=== PATIENT | male | born 1965 | race Caucasian/White ===

== ENCOUNTER 2017-06-12 17:48 | Emergency (ER) | payer SELFPAY ==
[~2017-06-12 17:48] MED LIST: CYCL10TA7 PO; TRAM50TA2 PO; TYL3 PO
[2017-06-12 18:18] LABS: APPEARANCE,URINE Clear (CLEAR); BILIRUBIN,URINE Negative (NEGATIVE); COLOR,URINE Yellow (YELLOW); GLUCOSE, URINE (UA) Negative (NEGATIVE); KETONES,URINE Negative (NEGATIVE); LEUKOCYTE ESTERASE ,URINE Negative (NEGATIVE); NITRATE,URINE Negative (NEGATIVE); OCCULT BLOOD,URINE Moderate (NEGATIVE); PROTEIN,URINE Negative (NEGATIVE); UROBILINOGEN,URINE 0.2 mg/dL (0.2-1.0)
[2017-06-12] MEDS ORDERED: ONDANSETRON HCL 4 MG/2 ML VIAL ONE (18:26)
[2017-06-12] MEDS ORDERED: SODIUM CHLORIDE 0.9% 1000ML 1,000 ML IV ONE (18:26)
[2017-06-12] MEDS ORDERED: MORPHINE SULFATE 4 MG/1ML SYG ONE ×2 (18:26→20:56)
[2017-06-12 18:31] LABS: BACTERIA,URINE Rare /HPF (None Seen); RBC,URINE None Seen /HPF (0-1); WBC,URINE 0-1 /HPF (0-1)
[2017-06-12 18:35] LABS: BASOPHILS % (AUTO) 0.5 % (0.0-5.0); EOSINOPHILS % (AUTO) 0.2 % (0.0-8.0); HEMATOCRIT 47.6 % (42-54); LYMPHOCYTES % (AUTO) 18.2 % (21.0-51.0); MEAN CORPUSCULAR HEMOGLOBIN 29.2 pg (27.0-33.0); MEAN CORPUSCULAR HGB CONC 34.6 g/dL (32.0-36.0); MEAN CORPUSCULAR VOLUME 84.5 fL (79-99); NEUTROPHILS % (AUTO) 74.1 % (40.0-77.0); PLATELET COUNT (AUTO) 305 K/uL (130-400); RED BLOOD CELL COUNT(AUTO) 5.63 MIL/uL (4.50-6.20); RED CELL DISTRIBUTION WIDTH 13.7 % (11.0-15.5); WHITE BLOOD COUNT (AUTO) 11.2 K/uL (4.8-10.8)
[2017-06-12 18:47] LABS: CREATININE 1.2 mg/dL (0.5-1.5); POTASSIUM 4.5 mmol/L (3.5-5.1)
[2017-06-12 18:50] LABS: ALBUMIN 4.3 g/dL (3.5-5.0); BILIRUBIN,DIRECT 0.1 mg/dL (0.0-0.3)
[2017-06-12 19:11] LABS: BILIRUBIN,TOTAL 0.4 mg/dL (0.2-1.0); TOTAL PROTEIN, SERUM 8.1 g/dL (6.0-8.3)
[2017-06-12] MEDS ORDERED: ACETAMINOPHEN-CODEINE 300/30MG TAB ONE (20:38)
== END 2017-06-12 21:06 | disposition home or self-care (01) ==
LOC: EDH 17:48
DX: R31.9 Hematuria, unspecified (principal); R10.9 Unspecified abdominal pain; Z88.6 Allergy status to analgesic agent
CPT/HCPCS: 36415; 74176; 76870; 80048; 80076; 81001; 85025; 87486; 87797; 96361; 96374; 96375; 96376; 99285; J2270 ×2; J2405; J7030

== ENCOUNTER 2018-11-16 14:52 | Inpatient (IN) | payer OTHER ==
[~2018-11-16] VITALS: Ht 182.9 cm; Wt 114.4 kg
[2018-11-16 15:22] LABS: APPEARANCE,URINE Clear (CLEAR); BILIRUBIN,URINE Negative (NEGATIVE); COLOR,URINE Yellow (YELLOW); GLUCOSE, URINE (UA) Negative (NEGATIVE); KETONES,URINE Negative (NEGATIVE); LEUKOCYTE ESTERASE ,URINE Negative (NEGATIVE); NITRATE,URINE Negative (NEGATIVE); OCCULT BLOOD,URINE Large (NEGATIVE); PH,URINE 5.5 (5.0-8.0); PROTEIN,URINE POS 1+ mg/dL (NEGATIVE)
[2018-11-16] MEDS ORDERED: DICYCLOMINE HCL 10 MG/ML 2ML AMP IM ONE (15:27)
[2018-11-16] MEDS ORDERED: ONDANSETRON HCL 4 MG/2 ML VIAL ONE (15:27)
[2018-11-16] MEDS ORDERED: SODIUM CHLORIDE 0.9% 1000ML 1,000 ML IV ONE ×3 (15:27→19:52)
[2018-11-16 15:36] LABS: AMPHET/METH SCREEN,URINE NEGATIVE (NEGATIVE); BARBITURATE SCREEN, URINE NEGATIVE (NEGATIVE); BENZODIAZEPINES SCREEN,URINE NEGATIVE (NEGATIVE); CANNABINOID SCREEN,URINE NEGATIVE (NEGATIVE); COCAINE SCREEN,URINE NEGATIVE (NEGATIVE); OPIATE SCREEN,URINE NEGATIVE (NEGATIVE); PHENCYCLIDINE SCREEN,URINE NEGATIVE (NEGATIVE)
[2018-11-16 15:46] LABS: BACTERIA,URINE None Seen /HPF (None Seen); MUCUS,URINE Moderate LPF (None Seen); RBC,URINE 26-50 /HPF (0-1); SQUAMOUS EPITHELIAL CELL,UR 0-2 /HPF (0-2); WBC,URINE None Seen /HPF (0-1)
[2018-11-16 15:55] LABS: BASOPHILS % (AUTO) 1.5 % (0.0-5.0); HEMATOCRIT 46.7 % (42-54); LYMPHOCYTES % (AUTO) 6.6 % (21.0-51.0); MEAN CORPUSCULAR HEMOGLOBIN 29.2 pg (27.0-33.0); MEAN CORPUSCULAR HGB CONC 34.3 g/dL (32.0-36.0); MEAN CORPUSCULAR VOLUME 85.2 fL (79-99); MONOCYTES % (AUTO) 8.4 % (3.0-13.0); NEUTROPHILS % (AUTO) 83.5 % (40.0-77.0); PLATELET COUNT (AUTO) 227 K/uL (130-400); RED BLOOD CELL COUNT(AUTO) 5.48 MIL/uL (4.50-6.20); RED CELL DISTRIBUTION WIDTH 13.4 % (11.0-15.5); WHITE BLOOD COUNT (AUTO) 13.8 K/uL (4.8-10.8)
[2018-11-16 16:09] LABS: ALBUMIN 3.8 g/dL (3.5-5.0); BILIRUBIN,DIRECT 0.2 mg/dL (0.0-0.3); BILIRUBIN,TOTAL 0.7 mg/dL (0.2-1.0); CREATININE 1.1 mg/dL (0.5-1.5); TOTAL PROTEIN, SERUM 7.6 g/dL (6.0-8.3)
[2018-11-16] MEDS ORDERED: CEFTRIAXONE SODIUM 1 GM ONE (16:55)
[2018-11-16] MEDS ORDERED: POTASSIUM BICARB/CIT AC 25 MEQ TABLET.EFF ONE (16:55)
[2018-11-16] MEDS ORDERED: SODIUM CHLORIDE 0.9% 100 ML IV ONE (16:56)
[2018-11-16] MEDS ORDERED: MORPHINE SULFATE 4 MG/1ML SYG ONE (17:01)
[2018-11-16] MEDS ORDERED: MAGNESIUM 2GM PREMIX 50ML 50 ML IV ONE (18:08)
[2018-11-16] MEDS ORDERED: ACETAMINOPHEN 325 MG TAB ONE (18:21)
[2018-11-16] MEDS ORDERED: ACETAMINOPHEN 325 MG TAB PO PRN (20:15)
[2018-11-16] MEDS ORDERED: ONDANSETRON HCL 4 MG/2 ML VIAL IVP PRN (20:15)
[2018-11-16] MEDS ORDERED: LIDOCAINE HCL-MPF 1% 2ML VIAL IVP PRN (20:30)
[2018-11-16] MEDS ORDERED: POTASSIUM CHLORIDE 10% ELIXIR 20 MEQ/15 ML UDCUP PO PRN (20:30)
[2018-11-16] MEDS ORDERED: POTASSIUM CHLORIDE 20 MEQ ERTAB PO PRN (20:30)
[2018-11-16] MEDS ORDERED: POTASSIUM CHLORIDE 20MEQ/100ML 100 ML IV PRN (20:30)
[2018-11-16] MEDS ORDERED: FAMOTIDINE/PF 20 MG/2 ML VIAL IV ONE (20:35)
[2018-11-16] MEDS: CEFTRIAXONE SODIUM 1 GM IVP SCH (20:45)
[2018-11-16] MEDS: FAMOTIDINE/PF 20 MG/2 ML VIAL IV SCH (21:00)
[2018-11-16 21:29] VITALS: BP 121/78
--- NOTE | 2018-11-16 21:30 | NUR ---
NEW ADMISSION ADMITTED A 53 YR OLD MALE FOR DIVERTICULITIS WITH COMPLAINTS OF PERSISTENT LLQ ABDOMINAL PAIN WITH NAUSEA AND VOMITING PLUS FEBRILE EPISODES WHICH PROMPTED THE PT TO SEEK ADMISSION TO THIS HOSPITAL. STARTED ON HYDRATION WITH NS AT 100 CC/HR, PRESCRIBED IV ANTIBIOTICS INITIATED. NO PAIN AND NAUSEA AT THIS TIME, SANDWICH TRAY PROVIDED PER REQUEST AND TOLERATED WELL. PLACED ON FALL PRECAUTIONS, FALL EPISODE 2 WEEKS AGO, PT HAVING PROBLEMS WITH HIS KNEE CAPS. HOME MEDS TO BE BROUGHT BY GF IN THE AM, WILL CONTINUE TO MONITOR.
[2018-11-16] MEDS: SODIUM CHLORIDE 0.9% 1000ML 1,000 ML IV SCH (21:50)
[2018-11-16] MEDS: METRONIDAZOLE 500MG/100ML BAG 100 ML IV SCH (21:51)
[2018-11-16] MEDS: ZOSYN 3.375GM+NS 50ML 50 ML IV SCH (22:34)
[2018-11-16 23:18] VITALS: BP 142/81
[2018-11-17 04:28] VITALS: BP 115/54
[2018-11-17] MEDS: METRONIDAZOLE 500MG/100ML BAG 100 ML IV SCH ×3 (05:14→20:55)
[2018-11-17 05:19] LABS: HEMATOCRIT 43.8 % (42-54); MEAN CORPUSCULAR HEMOGLOBIN 29.5 pg (27.0-33.0); MEAN CORPUSCULAR HGB CONC 33.7 g/dL (32.0-36.0); MEAN CORPUSCULAR VOLUME 87.5 fL (79-99); PLATELET COUNT (AUTO) 193 K/uL (130-400); RED CELL DISTRIBUTION WIDTH 13.9 % (11.0-15.5); WHITE BLOOD COUNT (AUTO) 10.4 K/uL (4.8-10.8)
[2018-11-17 05:43] LABS: BAND NEUTROPHILS % (MANUAL) 2 % (0-2); LYMPHOCYTES % (MANUAL) 13 % (22-44); MAN.DIFF COMMENT-IMPRESSION MANUAL DIFFERENTIAL; MONOCYTES % (MANUAL) 11 % (2-9); SEGMENTED NEUTROPHILS % 74 % (40-70)
[2018-11-17 05:44] LABS: PLATELET MORPHOLOGY COMMENT ADEQUATE
[2018-11-17] MEDS: SODIUM CHLORIDE 0.9% 1000ML 1,000 ML IV SCH ×3 (06:04→22:29)
[2018-11-17] MEDS: ZOSYN 3.375GM+NS 50ML 50 ML IV SCH ×3 (06:04→20:55)
[2018-11-17 07:56] VITALS: BP 107/75
[2018-11-17 08:21] LABS: CREATININE 1.2 mg/dL (0.5-1.5); POTASSIUM 3.6 mmol/L (3.5-5.1)
[2018-11-17] MEDS: ENOXAPARIN SODIUM 30 MG/0.3 ML SQ SCH (09:00)
[2018-11-17] MEDS: FAMOTIDINE/PF 20 MG/2 ML VIAL IV SCH ×2 (09:00→20:55)
[2018-11-17 12:00] VITALS: BP 117/69
[2018-11-17] MEDS: MORPHINE SULFATE 2 MG/ML 1ML SYG IV PRN ×2 (12:37→21:07)
--- NOTE | 2018-11-17 13:16 | NUR ---
D/C PLAN CM spoke to pt regarding d/c planning. Girlfriend Cheli at bedside. States she lives with pt and assists in care. Pt uses cane for ambulation. CM provided community resources packet. Plan to home. No needs verbalized or identified. CM to f/u. Addendum: 11/17/18 at 1318 by RUSS BASURTO CM Amended: Links added.
[2018-11-17 16:00] VITALS: BP 120/74
[2018-11-17 19:49] VITALS: BP 123/85
[2018-11-17] MEDS: PSYLLIUM SEED 1 EACH PACKET PO SCH (20:55)
[2018-11-17] MEDS: CEFTRIAXONE SODIUM 1 GM IVP SCH (20:55)
[2018-11-18 00:01] VITALS: BP 129/81
[2018-11-18 03:44] VITALS: BP 111/73
--- NOTE | 2018-11-18 03:44 | NUR ---
PIV Iv to rt antecubital occluded,Iv dcd.cath tip intact.Applied pressure until bleeding stopped.New Iv started to rt hand x 1 attempt,osmel well.
[2018-11-18] MEDS: ZOSYN 3.375GM+NS 50ML 50 ML IV SCH ×3 (03:56→20:18)
[2018-11-18] MEDS: SODIUM CHLORIDE 0.9% 1000ML 1,000 ML IV SCH ×2 (03:56→20:19)
[2018-11-18] MEDS: METRONIDAZOLE 500MG/100ML BAG 100 ML IV SCH ×3 (03:57→20:18)
[2018-11-18 07:00] VITALS: BP 117/75
[2018-11-18 07:30] LABS: BASOPHILS % (AUTO) 0.7 % (0.0-5.0); EOSINOPHILS % (AUTO) 2.2 % (0.0-8.0); HEMATOCRIT 42.1 % (42-54); LYMPHOCYTES % (AUTO) 24.8 % (21.0-51.0); MEAN CORPUSCULAR HEMOGLOBIN 29.1 pg (27.0-33.0); MEAN CORPUSCULAR HGB CONC 33.4 g/dL (32.0-36.0); MEAN CORPUSCULAR VOLUME 87.3 fL (79-99); MONOCYTES % (AUTO) 15.6 % (3.0-13.0); NEUTROPHILS % (AUTO) 56.7 % (40.0-77.0); PLATELET COUNT (AUTO) 207 K/uL (130-400); RED BLOOD CELL COUNT(AUTO) 4.82 MIL/uL (4.50-6.20); RED CELL DISTRIBUTION WIDTH 13.5 % (11.0-15.5); WHITE BLOOD COUNT (AUTO) 6.9 K/uL (4.8-10.8)
[2018-11-18 07:37] LABS: CREATININE 1.1 mg/dL (0.5-1.5); POTASSIUM 3.8 mmol/L (3.5-5.1)
[2018-11-18] MEDS: PSYLLIUM SEED 1 EACH PACKET PO SCH (08:55)
[2018-11-18] MEDS: FAMOTIDINE/PF 20 MG/2 ML VIAL IV SCH ×2 (08:55→20:18)
[2018-11-18] MEDS: ENOXAPARIN SODIUM 30 MG/0.3 ML SQ SCH (09:00)
[2018-11-18 11:00] VITALS: BP 139/79
--- NOTE | 2018-11-18 13:46 | NUR ---
DR. BRODY IN TO SEE PT. DIET >TO FULL LIQUIDS.
[2018-11-18 16:00] VITALS: BP 142/79
[2018-11-18] MEDS: MORPHINE SULFATE 2 MG/ML 1ML SYG IV PRN (17:26)
[2018-11-18 19:00] VITALS: BP 155/94
--- NOTE | 2018-11-18 20:00 | NUR ---
ACTIVITY Pt up and ambulating in the hallway with shaila.Shila well.
[2018-11-18] MEDS: CEFTRIAXONE SODIUM 1 GM IVP SCH (20:18)
[2018-11-19] VITALS: BP 144/80
[2018-11-19] MEDS: SODIUM CHLORIDE 0.9% 1000ML 1,000 ML IV SCH (01:04)
[2018-11-19 04:00] VITALS: BP 128/83
--- NOTE | 2018-11-19 04:21 | NUR ---
REFUSED Pt refusing blood draws.He said "no more blood".Explained Md order for labs.He refused to sign refusal form either.
[2018-11-19] MEDS: ZOSYN 3.375GM+NS 50ML 50 ML IV SCH ×2 (04:57→15:12)
[2018-11-19] MEDS: METRONIDAZOLE 500MG/100ML BAG 100 ML IV SCH ×2 (04:57→15:12)
[2018-11-19 07:00] VITALS: BP 161/102
--- NOTE | 2018-11-19 08:00 | NUR ---
AM SHIFT ASSESSMENT.STATES HE IS READY TO GO HOME.NO DC ORDERS IN PLACE YET.
[2018-11-19 08:15] LABS: HEMATOCRIT 44.4 % (42-54); MEAN CORPUSCULAR HEMOGLOBIN 28.8 pg (27.0-33.0); MEAN CORPUSCULAR HGB CONC 33.1 g/dL (32.0-36.0); NUCLEATED RED BLOOD CELLS 0.1 % (0.0-0.19); PLATELET COUNT (AUTO) 228 K/uL (130-400); RED CELL DISTRIBUTION WIDTH 13.4 % (11.0-15.5); WHITE BLOOD COUNT (AUTO) 6.3 K/uL (4.8-10.8)
[2018-11-19 08:25] LABS: CREATININE 1.1 mg/dL (0.5-1.5)
[2018-11-19] MEDS: PSYLLIUM SEED 1 EACH PACKET PO SCH (10:05)
[2018-11-19] MEDS: FAMOTIDINE/PF 20 MG/2 ML VIAL IV SCH (10:05)
[2018-11-19] MEDS: ENOXAPARIN SODIUM 30 MG/0.3 ML SQ SCH (10:06)
--- NOTE | 2018-11-19 11:00 | NUR ---
IN TO SEE PT.DIET ORDERED CHANGED TO LOW FIBER.
[2018-11-19 12:01] VITALS: BP 173/98
[2018-11-19] MEDS ORDERED: METR-172 PO (13:29)
[2018-11-19] MEDS ORDERED: LEVO500T89 PO (13:29)
[2018-11-19] MEDS ORDERED: CEFD300C3 PO (13:44)
--- NOTE | 2018-11-19 17:30 | NUR ---
DISCHARGED NOW USING TEACH BACK. RX GIVEN ,WILL FOLLOW UP WITH PRIMARY DRGloria IN 3 TO 5 DAYS AND HAVE BP CHECKED IT WAS HIGH ON SEVERAL OCCASIONS. NO PAIN ABD AT TIME DC. TOLERATED DIET .
== END 2018-11-19 17:00 | disposition home or self-care (01) | DRG 392 ==
LOC: EDH 14:52 → EDHIP 14:53 → OBSVTOIN 14:53 → 3BH 20:08
PROVIDERS: ADMIT Hospitalist; ATTEND Hospitalist
DX: K57.32 Diverticulitis of large intestine without perforation or abscess without bleeding (principal); E87.1 Hypo-osmolality and hyponatremia; E86.0 Dehydration; E87.6 Hypokalemia; R73.9 Hyperglycemia, unspecified; M19.90 Unspecified osteoarthritis, unspecified site; H53.8 Other visual disturbances; M51.26 Other intervertebral disc displacement, lumbar region; K59.00 Constipation, unspecified; E66.3 Overweight; Z87.442 Personal history of urinary calculi; Z83.3 Family history of diabetes mellitus; Z68.32 Body mass index [BMI] 32.0-32.9, adult; Z88.6 Allergy status to analgesic agent; Z91.018 Allergy to other foods; Z79.899 Other long term (current) drug therapy
CPT/HCPCS: 36415; 74176; 80048; 80076; 80305; 81001; 82150; 83690; 85025; 85027; G0378; J0500; J0696; J1650; J2270; J2405; J2543; J3475; J3490; J7030

== ENCOUNTER 2019-10-14 12:55 | Emergency (ER) | payer SELFPAY ==
[~2019-10-14 12:55] MED LIST changes: +CEFD300C3 PO; +LEVO500T89 PO; +METR-172 PO
== END 2019-10-14 15:07 | disposition home or self-care (01) ==
LOC: EDH 12:55
DX: S80.02XA Contusion of left knee, initial encounter (principal); S80.01XA Contusion of right knee, initial encounter; M19.90 Unspecified osteoarthritis, unspecified site; Z87.891 Personal history of nicotine dependence; Z88.6 Allergy status to analgesic agent; Z79.899 Other long term (current) drug therapy; W18.39XA Other fall on same level, initial encounter; Y93.89 Activity, other specified; Y92.89 Other specified places as the place of occurrence of the external cause; Y99.8 Other external cause status
CPT/HCPCS: 99281

== ENCOUNTER 2020-02-29 01:08 | Emergency (ER) | payer OTHER ==
[2020-02-29] MEDS ORDERED: LIDOCAINE HCL 1% 20 ML VIAL ONE (01:25)
[2020-02-29] MEDS ORDERED: TETANUS/DIPHTHERIA TOXOID [ADULT] 0.5 ML VIAL IM ONE (01:31)
== END 2020-02-29 01:58 | disposition home or self-care (01) ==
LOC: EDH 01:08
DX: S61.412A Laceration without foreign body of left hand, initial encounter (principal); W26.0XXA Contact with knife, initial encounter; M19.90 Unspecified osteoarthritis, unspecified site; Z88.6 Allergy status to analgesic agent; Y93.89 Activity, other specified; Y92.89 Other specified places as the place of occurrence of the external cause; Y99.8 Other external cause status
CPT/HCPCS: 12002; 90471; 90714

== ENCOUNTER 2020-07-28 22:13 | Emergency (ER) | payer SELFPAY ==
[~2020-07-28 22:13] MED LIST changes: +CYCL-309 PO; -CYCL10TA7 PO; -LEVO500T89 PO; +LEVO500T90 PO
[2020-07-28 22:42] LABS: BASOPHILS % (AUTO) 0.7 % (0.0-5.0); EOSINOPHILS % (AUTO) 1.3 % (0.0-8.0); HEMATOCRIT 43.3 % (42-54); MEAN CORPUSCULAR HEMOGLOBIN 29.6 pg (27.0-33.0); MEAN CORPUSCULAR HGB CONC 35.1 g/dL (32.0-36.0); MEAN CORPUSCULAR VOLUME 84.4 fL (79-99); MONOCYTES % (AUTO) 11.2 % (3.0-13.0); NEUTROPHILS % (AUTO) 55.5 % (40.0-77.0); PLATELET COUNT (AUTO) 227 K/uL (130-400); RED BLOOD CELL COUNT(AUTO) 5.13 MIL/uL (4.50-6.20); RED CELL DISTRIBUTION WIDTH 13.1 % (11.0-15.5); WHITE BLOOD COUNT (AUTO) 7.5 K/uL (4.8-10.8)
[2020-07-28 23:00] LABS: CREATININE 1.2 mg/dL (0.5-1.5); POTASSIUM 3.5 mmol/L (3.5-5.1)
[2020-07-28 23:03] LABS: INR 0.98 (0.85-1.15); PROTHROMBIN TIME 10.7 SEC (9.6-11.6)
[2020-07-28 23:04] LABS: PARTIAL THROMBOPLASTIN TIME 25.6 SEC (26.3-35.5)
[2020-07-28 23:05] LABS: ALBUMIN 3.8 g/dL (3.5-5.0); BILIRUBIN,TOTAL 0.5 mg/dL (0.2-1.0); TOTAL PROTEIN, SERUM 7.3 g/dL (6.0-8.3)
[2020-07-29] MEDS ORDERED: ACETAMINOPHEN 500 MG TABLET ONE (00:55)
[2020-07-29 01:16] LABS: APPEARANCE,URINE Clear (CLEAR); BILIRUBIN,URINE Negative (NEGATIVE); COLOR,URINE Yellow (YELLOW); GLUCOSE, URINE (UA) Negative (NEGATIVE); KETONES,URINE Negative (NEGATIVE); LEUKOCYTE ESTERASE ,URINE Negative (NEGATIVE); NITRATE,URINE Negative (NEGATIVE); OCCULT BLOOD,URINE Negative (NEGATIVE); PROTEIN,URINE Negative (NEGATIVE)
[2020-07-29] MEDS ORDERED: HYDROXYZINE 25 MG TABLET ONE (02:04)
== END 2020-07-29 03:28 | disposition home or self-care (01) ==
LOC: EDH 22:13
DX: F41.9 Anxiety disorder, unspecified (principal); R51.9 Headache, unspecified; M19.90 Unspecified osteoarthritis, unspecified site; Z88.6 Allergy status to analgesic agent
CPT/HCPCS: 36415; 71045; 80053; 81003; 82550; 84484; 85025; 85610; 85730; 93005

== ENCOUNTER 2020-08-25 01:42 | Emergency (ER) | payer OTHER ==
[~2020-08-25 01:42] MED LIST changes: -CYCL-309 PO; +CYCL10TA7 PO; +LEVO500T89 PO; -LEVO500T90 PO
[2020-08-25] MEDS ORDERED: TETANUS/DIPHTHERIA TOXOID [ADULT] 0.5 ML VIAL IM ONE (02:07)
[2020-08-25] MEDS ORDERED: LIDOCAINE 1%-EPI 1:100,000 20 ML VIAL IJ ONE (02:47)
== END 2020-08-25 03:46 | disposition home or self-care (01) ==
LOC: EDH 01:42
DX: S01.511A Laceration without foreign body of lip, initial encounter (principal); M19.90 Unspecified osteoarthritis, unspecified site; Z88.6 Allergy status to analgesic agent; W22.8XXA Striking against or struck by other objects, initial encounter; Y93.89 Activity, other specified; Y92.098 Other place in other non-institutional residence as the place of occurrence of the external cause; Y99.8 Other external cause status
CPT/HCPCS: 12011; 90471; 90714; 99283; J3490

== ENCOUNTER 2021-02-16 20:40 | Emergency (ER) | payer SELFPAY ==
[~2021-02-16] VITALS: Ht 182.9 cm; Wt 115.7 kg
[~2021-02-16 20:40] MED LIST changes: +CYCL-309 PO; -CYCL10TA7 PO; -LEVO500T89 PO; +LEVO500T90 PO
[2021-02-16 20:53] VITALS: BP 143/104
[2021-02-16] MEDS ORDERED: OCTYL 2-CYANOACRYLATE 1 EACH TP ONE ×2 (22:06→22:16)
== END 2021-02-16 22:27 | disposition home or self-care (01) ==
LOC: EDH 20:40
DX: S06.0X0A Concussion without loss of consciousness, initial encounter (principal); S01.81XA Laceration without foreign body of other part of head, initial encounter; W22.8XXA Striking against or struck by other objects, initial encounter; Z88.6 Allergy status to analgesic agent; Z79.899 Other long term (current) drug therapy; Y93.89 Activity, other specified; Y92.89 Other specified places as the place of occurrence of the external cause; Y99.8 Other external cause status
CPT/HCPCS: 12011; 70450; 72125

== ENCOUNTER 2021-03-25 05:27 | Emergency (ER) | payer SELFPAY ==
[~2021-03-25] VITALS: Ht 182.9 cm; Wt 115.7 kg
[2021-03-25 05:46] LABS: BASOPHILS % (AUTO) 0.5 % (0.0-5.0); EOSINOPHILS % (AUTO) 1.3 % (0.0-8.0); HEMATOCRIT 45.4 % (42-54); LYMPHOCYTES % (AUTO) 38.8 % (21.0-51.0); MEAN CORPUSCULAR HGB CONC 34.1 g/dL (32.0-36.0); MONOCYTES % (AUTO) 11.1 % (3.0-13.0); NEUTROPHILS % (AUTO) 47.9 % (40.0-77.0); PLATELET COUNT (AUTO) 246 K/uL (130-400); RED BLOOD CELL COUNT(AUTO) 5.34 MIL/uL (4.50-6.20); RED CELL DISTRIBUTION WIDTH 13.6 % (11.0-15.5); WHITE BLOOD COUNT (AUTO) 7.7 K/uL (4.8-10.8)
[2021-03-25 06:03] LABS: ALBUMIN 4.1 g/dL (3.5-5.0); BILIRUBIN,TOTAL 0.6 mg/dL (0.2-1.0); CREATININE 1.2 mg/dL (0.5-1.5); POTASSIUM 3.6 mmol/L (3.5-5.1); TOTAL PROTEIN, SERUM 7.2 g/dL (6.0-8.3)
[2021-03-25 06:19] LABS: ABG PCO2 43 mmHg (35-48)
[2021-03-25] MEDS ORDERED: ASPIRIN 325MG TAB PO ONE (06:30)
[2021-03-25 08:15] LABS: APPEARANCE,URINE Clear (CLEAR); BILIRUBIN,URINE Negative (NEGATIVE); COLOR,URINE Yellow (YELLOW); GLUCOSE, URINE (UA) Negative (NEGATIVE); KETONES,URINE Negative (NEGATIVE); LEUKOCYTE ESTERASE ,URINE Negative (NEGATIVE); NITRATE,URINE Negative (NEGATIVE); OCCULT BLOOD,URINE Negative (NEGATIVE); PROTEIN,URINE Negative (NEGATIVE); UROBILINOGEN,URINE 0.2 mg/dL (0.2-1.0)
[2021-03-25] MEDS ORDERED: ONDA4TAB10 PO (08:20)
[2021-03-25] MEDS ORDERED: PANT40TA PO (08:20)
[2021-03-25] MEDS ORDERED: METOCLOPRAMIDE 10 MG/2 ML VIAL IVP SCH (08:30)
[2021-03-25] MEDS ORDERED: PANTOPRAZOLE 40 MG/VIAL IVP SCH (08:30)
[2021-03-25] MEDS ORDERED: FAMOTIDINE 20MG VIAL IV SCH (08:30)
[2021-03-25] MEDS ORDERED: METOCLOPRAMIDE 10 MG/2 ML VIAL ONE (08:31)
[2021-03-25] MEDS ORDERED: FAMOTIDINE 20MG VIAL IV ONE (08:31)
[2021-03-25] MEDS ORDERED: PANTOPRAZOLE 40 MG/VIAL ONE (08:31)
[2021-03-25 08:33] VITALS: BP 108/67
== END 2021-03-25 08:54 | disposition home or self-care (01) ==
LOC: EDH 05:27
DX: E86.9 Volume depletion, unspecified (principal); R10.13 Epigastric pain; Z88.6 Allergy status to analgesic agent; M19.90 Unspecified osteoarthritis, unspecified site; Z79.82 Long term (current) use of aspirin; Z79.899 Other long term (current) drug therapy
CPT/HCPCS: 36415; 36600; 71045; 80053; 81003; 82803; 84484; 85025; 93005; 96374; 96375; 99285; C9113; J2765; J3490

== ENCOUNTER 2021-09-08 08:59 | Day surgery (SDC) | payer MEDICAID ==
[~2021-09-08] VITALS: Ht 182.9 cm; Wt 122.9 kg
[2021-09-08] VITALS (11 sets, daily range): BP systolic 111–140; BP diastolic 77–90
[~2021-09-08 08:59] MED LIST changes: +ONDA4TAB10 PO; +PANT40TA PO
[2021-09-08] MEDS ORDERED: 0.9%NACL 1000ML 1,000 ML IV ONE (10:08)
[2021-09-08] MEDS ORDERED: MECL-160 PO (10:22)
[2021-09-08] MEDS ORDERED: GABA300C PO (10:22)
[2021-09-08] MEDS ORDERED: TAMS-1 PO (10:22)
[2021-09-08] MEDS ORDERED: DICY20TA3 PO (10:22)
[2021-09-08] MEDS ORDERED: PRED20TA3 PO (10:22)
[2021-09-08] MEDS ORDERED: SUCR1TAB2 PO (10:22)
[2021-09-08] MEDS ORDERED: INDO50CA98 PO (10:22)
[2021-09-08] MEDS ORDERED: LIDOCAINE PF 100MG/5ML (2%) SYRINGE 5ML ONE ×2 (10:28)
[2021-09-08] MEDS ORDERED: PROPOFOL 10 MG/ML 20ML VIAL IV ONE (10:28)
[2021-09-08] MEDS ORDERED: FENTANYL CITRATE PF 50 MCG/1 ML 2ML VIAL ONE (10:29)
== END 2021-09-08 11:30 | disposition home or self-care (01) ==
LOC: ENDO 08:59 → DAH 08:59 → ENDO 11:30
PROVIDERS: ATTEND Student in an Organized Health Care Education/Training Program
DX: K21.9 Gastro-esophageal reflux disease without esophagitis (principal); K29.50 Unspecified chronic gastritis without bleeding; G47.30 Sleep apnea, unspecified; Z98.890 Other specified postprocedural states; Z83.3 Family history of diabetes mellitus; Z80.9 Family history of malignant neoplasm, unspecified; Z79.899 Other long term (current) drug therapy
CPT/HCPCS: 87635; 88305; 88342; 43239; C9803; J3010; J7030; J3490 ×3; A4215 ×2; A4223; A4222; A4221; A4663; A4606; J2001; J2704

== ENCOUNTER → 2021-09-23 | Outpatient (CLI) | payer MEDICAID ==
[~2021-09-23] MED LIST changes: -CEFD300C3 PO; -CYCL-309 PO; +DICY20TA3 PO; +GABA300C PO; +INDO50CA98 PO; -LEVO500T90 PO; +MECL-160 PO; -METR-172 PO; -ONDA4TAB10 PO; -PANT40TA PO; +PRED20TA3 PO; +SUCR1TAB2 PO; +TAMS-1 PO; -TRAM50TA2 PO
== END ==
LOC: RAH 09:38
PROVIDERS: ATTEND Family Medicine
DX: Z01.818 Encounter for other preprocedural examination (principal)
CPT/HCPCS: 71046

== ENCOUNTER → 2022-06-07 | Outpatient (CLI) | payer MEDICAID ==
[~2022-06-07] MED LIST changes: +AMOX1TAB16 PO; +FAMO-136 PO; +OMEP20TA20 PO
== END | disposition home or self-care (01) ==
LOC: RAH 08:19
PROVIDERS: ATTEND Family Medicine
DX: K21.9 Gastro-esophageal reflux disease without esophagitis (principal); R10.9 Unspecified abdominal pain
CPT/HCPCS: 74240

== ENCOUNTER 2022-08-04 11:15 | Emergency (ER) | payer MEDICAID ==
[~2022-08-04] VITALS: Ht 182.9 cm; Wt 108.9 kg
[2022-08-04 11:41] LABS: APPEARANCE,URINE CLEAR (CLEAR); BILIRUBIN,URINE NEGATIVE (NEGATIVE); COLOR,URINE YELLOW (YELLOW); GLUCOSE, URINE (UA) NEGATIVE (NEGATIVE); KETONES,URINE NEGATIVE (NEGATIVE); LEUKOCYTE ESTERASE ,URINE NEGATIVE Leu/uL (NEGATIVE); NITRATE,URINE NEGATIVE (NEGATIVE); OCCULT BLOOD,URINE NEGATIVE (NEGATIVE); PROTEIN,URINE NEGATIVE (NEGATIVE); UROBILINOGEN,URINE 0.2 mg/dL (0.2-1.0)
[2022-08-04] MEDS ORDERED: CEFTRIAXONE 1G VIAL IM ONE (14:00)
[2022-08-04] MEDS ORDERED: TETRACAINE HCL 0.5% 4 ML OPHTH SOLN OP SCH (14:00)
[2022-08-04 14:36] VITALS: BP 149/90
[2022-08-04] MEDS ORDERED: MOXIOS OD (15:06)
[2022-08-04] MEDS ORDERED: AZITHROMYCIN 250 MG TABLET PO ONE (15:30)
== END 2022-08-04 15:27 | disposition home or self-care (01) ==
LOC: EDH 11:15
DX: T15.81XA Foreign body in other and multiple parts of external eye, right eye, initial encounter (principal); A64 Unspecified sexually transmitted disease; H10.9 Unspecified conjunctivitis; Z90.49 Acquired absence of other specified parts of digestive tract; Z79.899 Other long term (current) drug therapy; Z98.890 Other specified postprocedural states; Z88.6 Allergy status to analgesic agent; Z88.8 Allergy status to other drugs, medicaments and biological substances
CPT/HCPCS: 99284; 81003; 96372; J0696

== ENCOUNTER 2022-09-01 11:53 | Emergency (ER) | payer MEDICAID ==
[~2022-09-01] VITALS: Ht 182.9 cm; Wt 111.1 kg
[~2022-09-01 11:53] MED LIST changes: +MOXIOS OD
[2022-09-01 12:25] LABS: BASOPHILS % (AUTO) 0.6 % (0.0-5.0); EOSINOPHILS % (AUTO) 2.2 % (0.0-8.0); HEMATOCRIT 49.1 % (42-54); LYMPHOCYTES % (AUTO) 23.2 % (21.0-51.0); MEAN CORPUSCULAR HEMOGLOBIN 29.2 pg (27.0-33.0); MEAN CORPUSCULAR HGB CONC 33.2 g/dL (32.0-36.0); MEAN CORPUSCULAR VOLUME 87.8 fL (79-99); MONOCYTES % (AUTO) 17.9 % (3.0-13.0); NEUTROPHILS % (AUTO) 55.9 % (40.0-77.0); PLATELET COUNT (AUTO) 216 K/uL (130-400); RED BLOOD CELL COUNT(AUTO) 5.59 MIL/uL (4.50-6.20); RED CELL DISTRIBUTION WIDTH 13.9 % (11.0-15.5); WHITE BLOOD COUNT (AUTO) 5.1 K/uL (4.8-10.8)
[2022-09-01 12:49] LABS: ALBUMIN 3.8 g/dL (3.5-5.0); CREATININE 1.1 mg/dL (0.5-1.5); POTASSIUM 3.9 mmol/L (3.5-5.1)
[2022-09-01] MEDS ORDERED: ACETAMINOPHEN 500 MG TABLET ONE (14:15)
[2022-09-01] MEDS ORDERED: IBUP-2070 PO (14:21)
[2022-09-01] MEDS ORDERED: ACETAMINOPHEN 500 MG TABLET PO ONE (14:30)
[2022-09-01 14:35] VITALS: BP 144/98; PULSE 78; RESP 18; O2SAT 98
[2022-09-01 15:11] LABS: APPEARANCE,URINE CLEAR (CLEAR); BILIRUBIN,URINE NEGATIVE (NEGATIVE); COLOR,URINE YELLOW (YELLOW); GLUCOSE, URINE (UA) NEGATIVE (NEGATIVE); KETONES,URINE NEGATIVE (NEGATIVE); LEUKOCYTE ESTERASE ,URINE NEGATIVE Leu/uL (NEGATIVE); NITRATE,URINE NEGATIVE (NEGATIVE); OCCULT BLOOD,URINE NEGATIVE (NEGATIVE); PH,URINE 5.5 (5.0-8.0); PROTEIN,URINE 10 mg/dL (NEGATIVE); UROBILINOGEN,URINE 0.2 mg/dL (0.2-1.0)
[2022-09-01 15:14] LABS: BACTERIA,URINE RARE /HPF (None Seen); WBC,URINE 0-1 /HPF (0-1); YEAST,URINE BUDDING RARE /HPF (None Seen)
== END 2022-09-01 15:45 | disposition home or self-care (01) ==
LOC: EDH 11:53
DX: B34.9 Viral infection, unspecified (principal); R07.9 Chest pain, unspecified; R51.9 Headache, unspecified; Z20.822 Contact with and (suspected) exposure to COVID-19; Z79.899 Other long term (current) drug therapy; Z98.890 Other specified postprocedural states; Z88.6 Allergy status to analgesic agent; Z88.8 Allergy status to other drugs, medicaments and biological substances
CPT/HCPCS: 36415; 71045; 80053; 81001; 84484; 85025; 87426; 87804; 87880; 93005

== ENCOUNTER 2022-09-16 17:28 | Emergency (ER) | payer MEDICAID ==
[~2022-09-16] VITALS: Ht 182.9 cm; Wt 111.1 kg
[2022-09-16 20:20] VITALS: BP 137/78
== END 2022-09-16 20:29 | disposition home or self-care (01) ==
LOC: EDH 17:28
DX: S09.8XXA Other specified injuries of head, initial encounter (principal); Z79.899 Other long term (current) drug therapy; Z88.6 Allergy status to analgesic agent; Z98.890 Other specified postprocedural states; W19.XXXA Unspecified fall, initial encounter; Y93.89 Activity, other specified; Y92.89 Other specified places as the place of occurrence of the external cause; Y99.8 Other external cause status
CPT/HCPCS: 70450; 72125

== ENCOUNTER 2022-11-08 10:18 | Emergency (ER) | payer MEDICAID ==
[~2022-11-08] VITALS: Ht 182.9 cm; Wt 111.1 kg
[2022-11-08 10:41] LABS: APPEARANCE,URINE CLEAR (CLEAR); BILIRUBIN,URINE NEGATIVE (NEGATIVE); COLOR,URINE COLORLESS (YELLOW); GLUCOSE, URINE (UA) NEGATIVE (NEGATIVE); KETONES,URINE NEGATIVE (NEGATIVE); LEUKOCYTE ESTERASE ,URINE NEGATIVE Leu/uL (NEGATIVE); NITRATE,URINE NEGATIVE (NEGATIVE); OCCULT BLOOD,URINE NEGATIVE (NEGATIVE); PH,URINE 5.5 (5.0-8.0); PROTEIN,URINE NEGATIVE (NEGATIVE); UROBILINOGEN,URINE 0.2 mg/dL (0.2-1.0)
[2022-11-08 10:50] LABS: BASOPHILS % (AUTO) 0.6 % (0.0-5.0); EOSINOPHILS % (AUTO) 0.7 % (0.0-8.0); LYMPHOCYTES % (AUTO) 27.8 % (21.0-51.0); MEAN CORPUSCULAR HEMOGLOBIN 29.8 pg (27.0-33.0); MEAN CORPUSCULAR HGB CONC 33.6 g/dL (32.0-36.0); MEAN CORPUSCULAR VOLUME 88.7 fL (79-99); MONOCYTES % (AUTO) 10.1 % (3.0-13.0); NEUTROPHILS % (AUTO) 60.1 % (40.0-77.0); PLATELET COUNT (AUTO) 246 K/uL (130-400); RED BLOOD CELL COUNT(AUTO) 5.64 MIL/uL (4.50-6.20); WHITE BLOOD COUNT (AUTO) 6.9 K/uL (4.8-10.8)
[2022-11-08 11:00] LABS: CREATININE 1.1 mg/dL (0.5-1.5); POTASSIUM 3.8 mmol/L (3.5-5.1)
[2022-11-08] MEDS ORDERED: ONDANSETRON 4MG INJ IVP ONE (11:00)
[2022-11-08] MEDS ORDERED: 0.9%NACL 1000ML 1,000 ML IV ONE (11:00)
[2022-11-08] MEDS ORDERED: MORPHINE 4 MG SYG IVP ONE (11:00)
[2022-11-08 11:04] LABS: ALBUMIN 3.8 g/dL (3.5-5.0)
[2022-11-08 12:39] VITALS: BP 134/87; PULSE 88; RESP 16
== END 2022-11-08 12:46 | disposition home or self-care (01) ==
LOC: EDH 10:18
DX: R30.0 Dysuria (principal); R31.9 Hematuria, unspecified; M19.90 Unspecified osteoarthritis, unspecified site; Z79.52 Long term (current) use of systemic steroids; Z79.899 Other long term (current) drug therapy; Z88.6 Allergy status to analgesic agent; Z90.49 Acquired absence of other specified parts of digestive tract
CPT/HCPCS: 99285; 74176; 96374; 71045; 96361; 96375; 86592; 84484; 80053; 83690; 85025; 87797; 87486; 81003; 36415; 93005; J7030; J2405; J2270

== ENCOUNTER 2022-12-14 20:33 | Emergency (ER) | payer MEDICAID ==
[~2022-12-14] VITALS: Ht 182.9 cm; Wt 110.2 kg
[2022-12-14 21:58] VITALS: BP 121/78; PULSE 74; RESP 20
[2022-12-14] MEDS ORDERED: KETOROLAC 60 MG VIAL (30MG/ML) IM ONE (23:00)
[2022-12-14] MEDS ORDERED: HYDROCODONE/ACETAMINOPHEN 5/325 MG TAB PO ONE (23:00)
[2022-12-14] MEDS ORDERED: ACET-2079 PO (23:50)
[2022-12-14] MEDS ORDERED: METH4TAB3 PO (23:50)
[2022-12-14] MEDS ORDERED: LIDOP TP (23:50)
[2022-12-14] MEDS ORDERED: CYCL5TAB PO (23:50)
== END 2022-12-15 00:14 | disposition home or self-care (01) ==
LOC: EDH 20:33
DX: S83.8X1A Sprain of other specified parts of right knee, initial encounter (principal); Z90.49 Acquired absence of other specified parts of digestive tract; Z79.899 Other long term (current) drug therapy; Z98.890 Other specified postprocedural states; Z88.6 Allergy status to analgesic agent; Z88.8 Allergy status to other drugs, medicaments and biological substances; X50.1XXA Overexertion from prolonged static or awkward postures, initial encounter; Y93.89 Activity, other specified; Y92.89 Other specified places as the place of occurrence of the external cause; Y99.8 Other external cause status
CPT/HCPCS: 99285; 93971; 73560; 96372; J1885

== ENCOUNTER 2022-12-27 20:10 | Emergency (ER) | payer MEDICAID ==
[~2022-12-27] VITALS: Ht 182.9 cm; Wt 110.2 kg
[~2022-12-27 20:10] MED LIST changes: +ACET-2079 PO; +CYCL5TAB PO; +LIDOP TP; +METH4TAB3 PO
[2022-12-27] MEDS ORDERED: KETOROLAC 30MG VIAL (30MG/ML) IM ONE (22:00)
[2022-12-27] MEDS ORDERED: IBUP-2070 PO (22:39)
[2022-12-27] MEDS ORDERED: CEPH500C2 PO (22:39)
[2022-12-27] MEDS ORDERED: TETANUS/DIPHTHERIA TOXOID [ADULT] 0.5 ML VIAL IM ONE (23:00)
[2022-12-27] MEDS ORDERED: CEPHALEXIN 500 MG CAPSULE PO ONE (23:00)
[2022-12-27] MEDS ORDERED: HYDROCODONE/ACETAMINOPHEN 5/325 MG TAB PO ONE (23:00)
[2022-12-27 23:43] VITALS: BP 138/72; PULSE 74; RESP 16; O2SAT 96
== END 2022-12-27 23:48 | disposition home or self-care (01) ==
LOC: EDH 20:10
DX: M17.11 Unilateral primary osteoarthritis, right knee (principal); S91.202A Unspecified open wound of left great toe with damage to nail, initial encounter; Z88.6 Allergy status to analgesic agent; Z90.49 Acquired absence of other specified parts of digestive tract; Z79.899 Other long term (current) drug therapy; X58.XXXA Exposure to other specified factors, initial encounter; Y93.89 Activity, other specified; Y92.89 Other specified places as the place of occurrence of the external cause; Y99.8 Other external cause status
CPT/HCPCS: 99284; 90714; 96372; 90471; J1885

== ENCOUNTER 2023-01-31 15:26 | Emergency (ER) | payer MEDICAID ==
[~2023-01-31] VITALS: Ht 182.9 cm; Wt 111.6 kg
[~2023-01-31 15:26] MED LIST changes: +CEPH500C2 PO; +IBUP-2070 PO; -MECL-160 PO; +MECL-302 PO
[2023-01-31 17:16] LABS: APPEARANCE,URINE CLEAR (CLEAR); BILIRUBIN,URINE NEGATIVE (NEGATIVE); COLOR,URINE LIGHT-YELLOW (YELLOW); GLUCOSE, URINE (UA) NEGATIVE (NEGATIVE); KETONES,URINE NEGATIVE (NEGATIVE); LEUKOCYTE ESTERASE ,URINE NEGATIVE Leu/uL (NEGATIVE); NITRATE,URINE NEGATIVE (NEGATIVE); OCCULT BLOOD,URINE NEGATIVE (NEGATIVE); PH,URINE 5.5 (5.0-8.0); PROTEIN,URINE NEGATIVE (NEGATIVE); UROBILINOGEN,URINE 0.2 mg/dL (0.2-1.0)
[2023-01-31 17:17] LABS: ADD UA MICROSCOPIC NO
[2023-01-31] MEDS ORDERED: SOLU-MEDROL 125MG VIAL IM ONE (18:30)
[2023-01-31] MEDS ORDERED: HYDROCODONE/ACETAMINOPHEN 5/325 MG TAB PO ONE (18:30)
[2023-01-31] MEDS ORDERED: METH4TAB3 PO (19:18)
[2023-01-31 19:37] VITALS: BP 122/78; PULSE 82; RESP 20; O2SAT 94
== END 2023-01-31 19:45 | disposition home or self-care (01) ==
LOC: EDH 15:26
DX: S73.101A Unspecified sprain of right hip, initial encounter (principal); S83.91XA Sprain of unspecified site of right knee, initial encounter; M19.90 Unspecified osteoarthritis, unspecified site; Z79.52 Long term (current) use of systemic steroids; Z79.899 Other long term (current) drug therapy; Z88.6 Allergy status to analgesic agent; Z90.49 Acquired absence of other specified parts of digestive tract; X58.XXXA Exposure to other specified factors, initial encounter; Y93.89 Activity, other specified; Y92.89 Other specified places as the place of occurrence of the external cause; Y99.8 Other external cause status
CPT/HCPCS: 99284; 81003; 73503; 73562; 96372; J2930

== ENCOUNTER 2023-03-24 18:36 | Emergency (ER) | payer MEDICAID ==
[~2023-03-24] VITALS: Ht 182.9 cm; Wt 111.1 kg
[2023-03-24 19:10] LABS: APPEARANCE,URINE CLEAR (CLEAR); BILIRUBIN,URINE NEGATIVE (NEGATIVE); COLOR,URINE LIGHT-YELLOW (YELLOW); GLUCOSE, URINE (UA) NEGATIVE (NEGATIVE); KETONES,URINE NEGATIVE (NEGATIVE); LEUKOCYTE ESTERASE ,URINE NEGATIVE Leu/uL (NEGATIVE); NITRATE,URINE NEGATIVE (NEGATIVE); OCCULT BLOOD,URINE NEGATIVE (NEGATIVE); PROTEIN,URINE NEGATIVE (NEGATIVE); UROBILINOGEN,URINE 0.2 mg/dL (0.2-1.0)
[2023-03-24 19:12] LABS: ADD UA MICROSCOPIC YES
[2023-03-24 19:18] LABS: RBC,URINE 0-1 /HPF (0-1)
[2023-03-24] MEDS ORDERED: CEFTRIAXONE 1G VIAL IM ONE ×2 (21:30)
[2023-03-24] MEDS ORDERED: AZITHROMYCIN 250 MG TABLET PO ONE ×2 (21:30)
[2023-03-24] MEDS ORDERED: LIDOCAINE HCL 1% 20 ML VIAL ONE (21:40)
[2023-03-24 22:15] VITALS: BP 142/73; PULSE 72; RESP 18; O2SAT 100
== END 2023-03-24 22:11 | disposition home or self-care (01) ==
LOC: EDH 18:36
DX: N34.2 Other urethritis (principal); M19.90 Unspecified osteoarthritis, unspecified site; Z79.52 Long term (current) use of systemic steroids; Z79.899 Other long term (current) drug therapy; Z88.6 Allergy status to analgesic agent; Z90.49 Acquired absence of other specified parts of digestive tract
CPT/HCPCS: 99283; 81001; 96372; J0696

== ENCOUNTER 2023-05-10 18:20 | Emergency (ER) | payer MEDICAID ==
[~2023-05-10] VITALS: Ht 182.9 cm; Wt 115.2 kg
[2023-05-10 18:51] LABS: APPEARANCE,URINE CLEAR (CLEAR); BILIRUBIN,URINE NEGATIVE (NEGATIVE); COLOR,URINE LIGHT-YELLOW (YELLOW); GLUCOSE, URINE (UA) NEGATIVE (NEGATIVE); KETONES,URINE NEGATIVE (NEGATIVE); LEUKOCYTE ESTERASE ,URINE NEGATIVE Leu/uL (NEGATIVE); NITRATE,URINE NEGATIVE (NEGATIVE); PH,URINE 5.5 (5.0-8.0); PROTEIN,URINE NEGATIVE (NEGATIVE); UROBILINOGEN,URINE 0.2 mg/dL (0.2-1.0)
[2023-05-10 18:53] LABS: ADD UA MICROSCOPIC YES
[2023-05-10 18:55] LABS: BACTERIA,URINE RARE /HPF (None Seen); WBC,URINE 0-1 /HPF (0-1)
[2023-05-10] MEDS ORDERED: HYDR30CR79 RC (21:10)
[2023-05-10 23:08] VITALS: BP 142/88; PULSE 90; RESP 20; O2SAT 96
== END 2023-05-10 23:28 | disposition home or self-care (01) ==
LOC: EDH 18:20
DX: R31.9 Hematuria, unspecified (principal); M19.90 Unspecified osteoarthritis, unspecified site; Z79.52 Long term (current) use of systemic steroids; Z79.899 Other long term (current) drug therapy; Z88.6 Allergy status to analgesic agent; Z90.49 Acquired absence of other specified parts of digestive tract
CPT/HCPCS: 81001

== ENCOUNTER 2023-06-22 20:52 | Emergency (ER) | payer MEDICAID ==
[~2023-06-22] VITALS: Ht 182.9 cm; Wt 66.2 kg
[~2023-06-22 20:52] MED LIST changes: +HYDR30CR79 RC
[2023-06-22 20:56] VITALS: BP 146/79; PULSE 74; RESP 18
[2023-06-22] MEDS ORDERED: CIPOTIC AD (21:03)
[2023-06-22] MEDS: ACETAMINOPHEN 500 MG TABLET PO ONE (21:08)
[2023-06-22] MEDS: CEFTRIAXONE 1G VIAL IM ONE (21:08)
== END 2023-06-22 21:25 | disposition home or self-care (01) ==
LOC: EDH 20:52
DX: H60.92 Unspecified otitis externa, left ear (principal); M19.90 Unspecified osteoarthritis, unspecified site; Z79.899 Other long term (current) drug therapy; Z90.49 Acquired absence of other specified parts of digestive tract; Z98.890 Other specified postprocedural states; Z88.5 Allergy status to narcotic agent; Z88.8 Allergy status to other drugs, medicaments and biological substances
CPT/HCPCS: 99283; 96372; J0696

== ENCOUNTER 2023-08-01 15:55 | Emergency (ER) | payer MEDICAID ==
[~2023-08-01] VITALS: Ht 182.9 cm; Wt 114.3 kg
[~2023-08-01 15:55] MED LIST changes: +CIPOTIC AD
[2023-08-01 16:25] LABS: APPEARANCE,URINE CLEAR (CLEAR); BILIRUBIN,URINE NEGATIVE (NEGATIVE); COLOR,URINE COLORLESS (YELLOW); GLUCOSE, URINE (UA) NEGATIVE (NEGATIVE); KETONES,URINE NEGATIVE (NEGATIVE); LEUKOCYTE ESTERASE ,URINE NEGATIVE Leu/uL (NEGATIVE); NITRATE,URINE NEGATIVE (NEGATIVE); OCCULT BLOOD,URINE NEGATIVE (NEGATIVE); PH,URINE 6.5 (5.0-8.0); PROTEIN,URINE NEGATIVE (NEGATIVE); UROBILINOGEN,URINE 0.2 mg/dL (0.2-1.0)
[2023-08-01 16:26] LABS: ADD UA MICROSCOPIC NO
[2023-08-01 16:48] LABS: BASOPHILS # (AUTO) 0.06 K/uL (0.00-0.20); BASOPHILS % (AUTO) 0.9 % (0.0-5.0); EOSINOPHILS # (AUTO) 0.06 K/uL (0.00-0.70); EOSINOPHILS % (AUTO) 0.9 % (0.0-8.0); HEMATOCRIT 44.7 % (42-54); IMMATURE GRANULOCYTE ABSOLUTE 0.03 K/uL (0-1); LYMPHOCYTES # (AUTO) 1.6 K/uL (1.0-4.8); LYMPHOCYTES % (AUTO) 24.7 % (21.0-51.0); MEAN CORPUSCULAR HEMOGLOBIN 29.5 pg (27.0-33.0); MEAN CORPUSCULAR HGB CONC 34.7 g/dL (32.0-36.0); MEAN CORPUSCULAR VOLUME 85.1 fL (79-99); MONOCYTES # (AUTO) 0.8 K/uL (0.1-1.0); NEUTROPHILS # (AUTO) 4.1 K/uL (1.8-7.7); PLATELET COUNT (AUTO) 262 K/uL (130-400); RED BLOOD CELL COUNT(AUTO) 5.25 MIL/uL (4.50-6.20); RED CELL DISTRIBUTION WIDTH 13.4 % (11.0-15.5); WHITE BLOOD COUNT (AUTO) 6.7 K/uL (4.8-10.8)
[2023-08-01] MEDS: 0.9%NACL 1000ML 1,000 ML IV ONE (16:52)
[2023-08-01 17:01] LABS: CREATININE 1.1 mg/dL (0.5-1.3)
[2023-08-01 17:05] LABS: ALBUMIN 3.8 g/dL (3.5-5.0); BILIRUBIN,TOTAL 0.5 mg/dL (0.2-1.0); TOTAL PROTEIN, SERUM 7.6 g/dL (6.0-8.3)
[2023-08-01 18:01] VITALS: BP 128/84; PULSE 78; RESP 18; O2SAT 98
== END 2023-08-01 18:10 | disposition home or self-care (01) ==
LOC: EDH 15:55
DX: R55 Syncope and collapse (principal); M19.90 Unspecified osteoarthritis, unspecified site; Z79.52 Long term (current) use of systemic steroids; Z79.899 Other long term (current) drug therapy; Z88.6 Allergy status to analgesic agent
CPT/HCPCS: 99285; 96360; 71045; 84484; 80053; 85025; 81003; 36415; 93005; J7030